=== PATIENT | female | born 1940 | race Caucasian/White ===

== ENCOUNTER 2023-09-28 13:48 | Inpatient (IN) | payer MEDICARE, OTHER ==
[~2023-09-28] VITALS: Ht 154.9 cm; Wt 72.6 kg
[2023-09-28 14:37] LABS: CALCIUM 8.4 mg/dL (8.5-10.1); CARBON DIOXIDE 25 mmol/L (21-32); CHLORIDE 107 mmol/L (98-107); CREATININE 0.6 mg/dL (0.6-1.3); GLUCOSE 134 mg/dL (74-106); NT-PRO BNP 375 pg/mL (0-125); POTASSIUM 3.5 mmol/L (3.5-5.1); SODIUM SERUM 143 mmol/L (136-145); UREA NITROGEN, BLOOD 16 mg/dL (7-18)
[2023-09-28 14:50] LABS: BASOPHILS % (AUTO) 0.3 % (0.0-2.0); DIFFERENTIAL COMMENT 0; EOSINOPHILS # (AUTO) 0.1 K/uL (0.0-0.7); EOSINOPHILS % (AUTO) 1.5 % (0.0-7.0); HEMATOCRIT 37.3 % (31.2-41.9); HEMOGLOBIN 12.4 g/dL (10.9-14.3); LYMPHOCYTES # (AUTO) 1.6 K/uL (0.8-4.8); LYMPHOCYTES % (AUTO) 22.5 % (20.5-51.5); MEAN CORPUSCULAR HEMOGLOBIN 31.4 uug (24.7-32.8); MEAN CORPUSCULAR HGB CONC 33 g/dL (32.3-35.6); MEAN CORPUSCULAR VOLUME 94.4 fL (75.5-95.3); MONOCYTES # (AUTO) 0.5 K/uL (0.1-1.30); NEUTROPHILS # (AUTO) 4.9 K/uL (1.8-8.9); NEUTROPHILS % (AUTO) 68.7 % (38.5-71.5); PLATELET COUNT (AUTO) 163 K/uL (179-408); RED BLOOD CELL COUNT(AUTO) 3.96 MIL/uL (3.63-4.92); RED CELL DISTRIBUTION WIDTH 14.1 % (12.3-17.7); WHITE BLOOD COUNT (AUTO) 7.1 K/uL (3.8-11.8)
[2023-09-28] MEDS ORDERED: ACET-2605 PO (15:04)
[2023-09-28] MEDS ORDERED: BISA10SU61 RC (15:04)
[2023-09-28] MEDS ORDERED: ATOR20TA PO (15:04)
[2023-09-28] MEDS ORDERED: MAGN400O6 PO (15:04)
[2023-09-28] MEDS ORDERED: CITA10TA9 PO (15:04)
[2023-09-28] MEDS ORDERED: METO-356 PO (15:04)
[2023-09-28] MEDS ORDERED: APIX5TAB4 PO (15:04)
[2023-09-28] MEDS ORDERED: CRAN450T9 PO (15:04)
[2023-09-28] MEDS ORDERED: NA P133E RC (15:04)
[2023-09-28] MEDS ORDERED: PANT40TA49 PO (15:04)
[2023-09-28] MEDS ORDERED: DIVALPROEX SPRINKLE 125 MG CAP.SPRINK PO ONE (17:45)
[2023-09-28] MEDS ORDERED: DIVALPROEX SPRINKLE 125 MG CAP.SPRINK ONE (17:48)
[2023-09-29 03:22] VITALS: BP 145/60; TEMP 97.1; O2SAT 97
[2023-09-29] MEDS ORDERED: FLEET ENEMA 133 ML BOTTLE RC PRN (11:00)
[2023-09-29] MEDS ORDERED: BISACODYL 10 MG SUPP.RECT RC PRN (11:00)
[2023-09-29] MEDS ORDERED: MAGNESIUM HYDROXIDE 30 ML LIQUID UDC PO PRN (11:00)
[2023-09-29 11:08] VITALS: BP 134/52; TEMP 98.6; O2SAT 97
[2023-09-29 14:21] LABS: *BLOOD, URINE NEGATIVE (NEGATIVE); *CLARITY,URINE CLEAR (CLEAR); *COLOR,URINE YELLOW (YELLOW); *KETONES,URINE NEGATIVE (NEGATIVE); *PROTEIN,URINE 1+ (NEGATIVE); LEUKOCYTE ESTERASE ,URINE NEGATIVE (NEGATIVE); NITRITE, URINE NEGATIVE (NEGATIVE); UGLUCOSE NEGATIVE (NEGATIVE)
[2023-09-29 14:22] LABS: *BILIRUBIN,URIN 1+ (NEGATIVE)
[2023-09-29 15:34] VITALS: BP 150/74; TEMP 98.2; O2SAT 96
[2023-09-29 15:43] LABS: BACTERIA,URINE MANY /HPF (NONE SEEN); CALCIUM OXALATE CRYSTALS,UR FEW /HPF (NONE SEEN); MUCUS,URINE MANY /LPF (0-FEW); RBC,URINE 0-3 /HPF (0-3); SQUAMOUS EPITHELIAL CELL,UR MODERATE /HPF (NONE SEEN); YEAST,URINE FEW /HPF (NONE SEEN)
[2023-09-29] MEDS: APIXABAN 5 MG TABLET PO SCH (16:41)
[2023-09-29 20:00] VITALS: BP 131/62; TEMP 97.7; O2SAT 95
[2023-09-29 20:17] VITALS: BP 131/62; TEMP 97.7; O2SAT 95
[2023-09-30 04:00] VITALS: BP 158/61; TEMP 97.8; O2SAT 98
[2023-09-30 04:14] VITALS: BP 158/61; TEMP 97.8; O2SAT 98
[2023-09-30] MEDS: ATORVASTATIN 20 MG TABLET PO SCH (08:31)
[2023-09-30] MEDS: METOPROLOL SUCCINATE XL 25 MG TAB.SR.24H PO SCH (08:31)
[2023-09-30] MEDS: PANTOPRAZOLE SODIUM 40 MG TABLET.DR PO SCH (08:32)
[2023-09-30] MEDS: APIXABAN 5 MG TABLET PO SCH ×2 (08:33→17:24)
[2023-09-30] MEDS: CITALOPRAM 10 MG TABLET PO SCH (08:33)
[2023-09-30] MEDS: ENSURE ENLIVE (VAN) 240 ML LIQUID PO SCH (08:41)
[2023-09-30] MEDS ORDERED: ONDANSETRON ODT 4 MG TAB.RAPDIS SL PRN (11:30)
[2023-09-30 11:48] VITALS: BP 115/78; TEMP 98.2; O2SAT 96
[2023-09-30 19:30] VITALS: BP 117/55; TEMP 98.1; O2SAT 94
[2023-10-01 05:30] VITALS: BP 117/48; TEMP 97.9; O2SAT 94
[2023-10-01 08:14] VITALS: BP 117/48
[2023-10-01] MEDS: ATORVASTATIN 20 MG TABLET PO SCH (08:14)
[2023-10-01] MEDS: PANTOPRAZOLE SODIUM 40 MG TABLET.DR PO SCH (08:14)
[2023-10-01] MEDS: METOPROLOL SUCCINATE XL 25 MG TAB.SR.24H PO SCH (08:14)
[2023-10-01] MEDS: CITALOPRAM 10 MG TABLET PO SCH (08:14)
[2023-10-01] MEDS: ENSURE ENLIVE (VAN) 240 ML LIQUID PO SCH (08:15)
[2023-10-01] MEDS: APIXABAN 5 MG TABLET PO SCH (08:15)
[2023-10-02] MEDS ORDERED: PANTOPRAZOLE SODIUM 40 MG TABLET.DR PO SCH (07:00)
== END 2023-10-01 12:10 | DRG 640 ==
LOC: ER 13:48 → MEDSURG3 19:49
PROVIDERS: ADMIT Internal Medicine; ATTEND Internal Medicine
DX: E86.0 Dehydration (principal); G93.41 Metabolic encephalopathy; F02.82 Dementia in other diseases classified elsewhere, unspecified severity, with psychotic disturbance; G30.9 Alzheimer's disease, unspecified; E78.5 Hyperlipidemia, unspecified; I48.0 Paroxysmal atrial fibrillation; K21.9 Gastro-esophageal reflux disease without esophagitis; R62.7 Adult failure to thrive; Z68.30 Body mass index [BMI] 30.0-30.9, adult; I10 Essential (primary) hypertension; Z79.899 Other long term (current) drug therapy; Z79.01 Long term (current) use of anticoagulants; Z86.73 Personal history of transient ischemic attack (TIA), and cerebral infarction without residual deficits; R53.1 Weakness; Z91.81 History of falling; G62.9 Polyneuropathy, unspecified; K44.9 Diaphragmatic hernia without obstruction or gangrene; R26.2 Difficulty in walking, not elsewhere classified
CPT/HCPCS: 36415; 70450; 71045; 84484; 85025; 93005; A4663; G0378; Q0162